=== PATIENT | male | born 1990 | race Caucasian/White ===

== ENCOUNTER 2023-07-19 13:24 | Emergency (ER) | payer OTHER, SELFPAY ==
[2023-07-19 13:40] VITALS: BP 171/103
[2023-07-19 14:01] LABS: % Basophils 0.4 % (0-2); % Eosinophils 0.5 % (0-6); % Immature Granulocytes 1.9 % (0-0.5); % Lymphocytes 12.2 % (20.5-51.1); % Monocytes 7.3 % (1.7-9.3); % Neutrophils 77.7 % (42.2-75.2); Absolute Eosinophils 0.1 10^3/uL (0-0.7); Absolute Immature Granulocytes 0.2 10^3/uL (0-0.05); Absolute Lymphocytes 1.3 10^3/uL (1.2-3.4); Absolute Monocytes 0.8 10^3/uL (0.1-0.6); Absolute Neutrophils 8.5 10^3/uL (1.4-6.5); Hemoglobin 16.3 g/dL (13.0-18.0); Mean Corpuscular Hgb 29.4 pg (27.0-31.0); Mean Corpuscular Volume 86.5 fL (80.0-94.0); Mean Platelet Volume 9.6 fL (7.4-10.4); Nucleated Red Blood Cells % 0 % (-); Platelet Count 220 10^3/uL (130-400); Red Blood Cell Count 5.55 10^6/uL (4.70-6.10); Red Cell Dist. Width 12.2 % (11.5-14.5); White Blood Cell Count 10.9 10^3/uL (4.8-10.8)
[2023-07-19 14:09] LABS: ALT (SGPT) 48 U/L (0-50); AST (SGOT) 37 U/L (17-59); Albumin 4.8 g/dl (3.5-5.0); Alkaline Phosphatase 63 U/L (38-126); Blood Urea Nitrogen 11 mg/dl (9-20); Calcium 9.8 mg/dl (8.4-10.2); Carbon Dioxide 27 mmol/L (22-30); Chloride 104 mmol/L (98-107); Glucose 113 mg/dl (70-99); Lipase 292 U/L (23-300); Potassium 4.7 mmol/L (3.5-5.1); Sodium 138 mmol/L (135-145); Total Bilirubin 1.5 mg/dl (0.2-1.3); Total Protein 8.4 g/dl (6.3-8.2); eGFR > 60.00
[2023-07-19 16:45] VITALS: BMI 46.3
[2023-07-19 16:47] VITALS: BP 147/91
--- NOTE | 2023-07-19 18:21 | ED.GENMED ---
History of Present Illness
General
Chief Complaint: Abdominal Pain
Source: patient and spouse
Exam Limitations: none
Time Seen by Provider: 07/19/23 16:45
Nursing documentation reviewed up to this point in time: agreed with
Travel History
Have you had any contact with someone who has COVID-19?: No
Do you have any symptoms of coronavirus? Fever > 100 degrees, chills, cough, shortness of breath, sore throat, loss of taste or smell, muscle aches, or headache?: No
History of Present Illness
History of Present Illness:
32-year-old male with no significant chronic medical issues presents with his for evaluation of abdominal pain, diarrhea. Patient reports onset of symptoms this morning around 4 AM and have been constant since that time. He reports a dull
pressure sensation in the periumbilical region that will occasionally become more intense and crampy in nature. He reports some associated nausea but no vomiting. He reports he has had intermittent diarrhea throughout the day with some blood mixed
in. He decided to come to the emergency room for assessment as symptoms did not seem to be going away. He denies any urinary symptoms. He denies any fevers or chills. He does note that he has been on Keflex for the past week for minor left toe
infection which seems to have improved�he has 3 to 4 days left on his 10-day course.
Past History
Past History
ED Past Medical History: Psychiatric (anxiety)
ED Past Surgical History: Other (adominal hernia repair, IHR X2)
Social History
Tobacco: Former smoker
Alcohol: Occasional
Drug: None
Review of Systems
Review of Systems
All Other Systems: ROS reviewed and negative except as documented in HPI and ROS
Constitutional: Denies fever or chills
Respiratory: Denies cough or trouble breathing
Cardiac: Denies chest pain or palpitations
ABD/GI: Reports abdominal pain, nausea, diarrhea and bloody stools; Denies vomiting or constipated
: Denies flank pain
Musculoskeletal: Denies neck pain or back pain
Neurological: Denies dizzy, headache, weakness or numbness
Phy Exam
Physical Exam
Physical Exam:
General: Awake, alert, oriented x3; no acute distress
Head: Normocephalic, atraumatic
Eyes: Conjunctiva normal, sclera anicteric
Throat: Airway intact, handling secretions
Neck: Trachea midline, supple without meningismus
Lungs: Clear to auscultation bilaterally, no wheezing, rales, rhonchi
Heart: Regular rate and rhythm, no murmurs, gallops, or rubs
Abd: Soft, non distended, mild diffuse tenderness
Neuro: Cranial nerves grossly intact, speech fluid
Extremities: Warm and well-perfused
Scores
Heart Failure Risk
Heart Failure Risk Score: Not Applicable
Heart Score for Chest Pain Patients
STEMI patient?: Not applicable
Withdrawal Assessment of Alcohol
Withdrawal Assessment Completed?: Not applicable
Course
Orders/Labs/Results
Orders:
Orders
07/19/23 13:43
ECG [Electrocardiogram (*1)] Urgent
Reason for Study: Abdominal Pain
EKG- Treatment ONCE
IV Insert/Care/Rem.- Treatment PRN
07/19/23 13:47
Complete Blood Count/With Diff Urgent
Comprehensive Metabolic Panel Urgent
Lipase Urgent
07/19/23 16:55
CT Abd/pelvis W Iv Cont Urgent
Comment:
Reason For Exam: periumbilical abdominal pain
STOOL [C difficile Antigen & Toxins] Urgent
CEASAR Source: Feces/Stool
Specimen Description:
Stool Culture Urgent
CEASAR Source: Feces/Stool
Specimen Description:
Abnormal Lab Results
07/19/23
13:47
WBC 10.9 H 10^3/uL
(4.8-10.8)
Abs Immat Gran (auto) 0.2 H 10^3/uL
(0-0.05)
Absolute Neuts (auto) 8.5 H 10^3/uL
(1.4-6.5)
Absolute Monos (auto) 0.8 H 10^3/uL
(0.1-0.6)
Immature Gran % 1.9 H %
(0-0.5)
Neutrophils % 77.7 H %
(42.2-75.2)
Lymphocytes % 12.2 L %
(20.5-51.1)
Glucose 113 H mg/dl
(70-99)
Total Bilirubin 1.5 H mg/dl
(0.2-1.3)
Total Protein 8.4 H g/dl
(6.3-8.2)
07/19/23 13:47
07/19/23 13:47
Vital Signs
Initial and Last Documented VS:
Initial Vital Signs
Temp Pulse Resp BP Pulse Ox
36.8 C 82 22 171/103 96
07/19/23 13:40 07/19/23 13:40 07/19/23 13:40 07/19/23 13:40 07/19/23 13:40
Last Documented Vital Signs
Temp Pulse Resp BP Pulse Ox
36.8 C 84 18 134/72 98
07/19/23 13:40 07/19/23 18:39 07/19/23 18:39 07/19/23 18:39 07/19/23 18:39
MDM/Problems Addressed
Differential Diagnosis Includes:
Colitis, enteritis, gastritis, bowel obstruction
MDM/Problems Addressed:
32-year-old male with no significant chronic medical issues presents to the emergency room for evaluation of abdominal pain associate with nausea and some bloody diarrhea all day today. Has been on Keflex for a toe infection recently. He was
hypertensive in triage normalized by my assessment. Physical exam as above. Plan placed IV check basic labs. Will send stool study if patient can provide sample. Check CT of the abdomen pelvis. Monitor closely reassess after the above.
Initial labs reviewed: CBC shows normal hemoglobin, slight leukocytosis to 10.9. CMP shows no clinically significant abnormalities. CT of the abdomen pelvis shows likely acute colitis. Patient unable to provide a stool sample here�given bloody
diarrhea we will plan to treat with antibiotics; he is currently on Keflex, will switch to Augmentin to complete course for minor toe infection and as well as GI bug. Will have him follow-up with his primary physician as an outpatient. Advised him
to drink plenty of fluids. He feels comfortable with this plan. Spoke about return precautions all questions answered.
Acute Exacerbation and/or Progression of Chronic Illness:
Acutely hypertensive resolved without intervention continue to monitor but no additional antihypertensive indicated at present
Acute Exacerbation and/or Progression of Chronic Illness: HTN
*Radiology
Radiology exam reviewed: radiology read reviewed
*Pulse Oximetry
Patient hypoxic: no
*EKG
Interpreted by ED Provider?: Yes
Heart Rate: 84
Rate: normal
Rhythm: sinus
[place]: normal axis
Interval: normal interval
QRS Pattern: normal QRS
Ischemia: no ischemia
*Critical Care Note
Total Time (30-74mins, 75-104mins- exclusive of procedures): Not Applicable
Data Reviewed
Source: patient and spouse
ED Attending Note
-
Portions of this chart may have been created with voice recognition software.� Occasional wrong word or��sound alike� substitutions may have occurred due to the inherent limitations of voice recognition software.
Discharge Plan
Departure
Patient Disposition: Home (Routine Discharge)
Date of Disposition: 07/19/23
Time of Disposition: 18:48
Patient with high blood pressure during this ER visit?: Yes
Discharge Problem:
Colitis
Instructions: Colitis (DC)
Prescriptions:
New
amoxicillin-pot clavulanate 875-125 mg tablet
1 tab PO BID Qty: 14 0RF
No Action
sertraline 50 mg Tablet
50 mg PO DAILY
oxycodone-acetaminophen [Percocet] 5-325 mg tablet
1 tab PO Q4H PRN (Reason: moderate to severe pain) Qty: 6 0RF
Referrals:
David Yanez MD [Family Provider] - Follow up in 5-7 days
Activity Restrictions/Additional Instructions:
Thank you for visiting the Emergency Department at [facility].
1. Please schedule a follow up appointment as directed. Call first thing tomorrow morning to make an appointment.
2. If indicated, please take your medications as instructed and indicated on discharge paperwork.
3. If any of your symptoms do not improve, or persist, or become more severe within 6-12 hours, please return to the emergency department for further care.
4. Please return to the emergency department if you develop a headache, neck pain/stiffness, fever greater than 100.4F, chest pain, shortness of breath, persistent nausea, vomiting, slurred speech, difficulty walking, numbness/tingling, weakness,
signs of infection or any other symptoms that are worrisome to you.
Please call [phone] if you have any questions.
Interventions
Interventions:
*Risk Screen - Suicide Last Done: 07/19/23 13:40
*General Assessment Last Done: 07/19/23 13:40
*Neglect/Abuse Screening Last Done: 07/19/23 13:40
OO-Fydnym-Fnevttbmns Assessment Last Done: 07/19/23 16:45
Discharge Date and Time
Print Language: ROMANSH
[2023-07-19 18:39] VITALS: BP 134/72
[2023-07-19] MEDS: AUGMENTIN 875 MG/125 MG 1 TABLET PO (18:59)
== END 2023-07-19 19:08 | disposition home or self-care (01) ==
LOC: EMR 13:24
PROVIDERS: Emergency Medicine; EMERGENCY PHYSICIAN Emergency Medicine; FAMILY PHYSICIAN Family Medicine
DX: K52.9 Noninfective gastroenteritis and colitis, unspecified (principal); I10 Essential (primary) hypertension; F41.9 Anxiety disorder, unspecified; Z87.891 Personal history of nicotine dependence
CPT/HCPCS: 99284; 74177; 80053; 83690; 85025; 93005; Q9967